=== PATIENT | female | born 1965 | race Caucasian/White ===

== ENCOUNTER 2018-06-08 17:13 | Emergency (ER) | payer OTHER ==
[~2018-06-08] VITALS: Ht 162.6 cm; Wt 82.6 kg
[2018-06-08 17:14] VITALS: Ht 162.6 cm; Wt 82.6 kg
[2018-06-08 18:13] LABS: BASOPHIL % 0.4 % (0-2); PLATELET COUNT 260 x10^3mcL (130-400); RED CELL DISTRIBUTION WIDTH 14.1 % (11.5-14.5)
[2018-06-08 18:23] LABS: CALCIUM 8.6 mg/dL (8.5-10.1); CARBON DIOXIDE 27.3 mmol/L (21-32); CREATININE SERUM 1.1 mg/dL (0.6-1.0); POTASSIUM SERUM 3.6 mmol/L (3.5-5.1)
[2018-06-08 18:28] LABS: ALBUMIN 3.3 g/dL (3.4-5.0); BILIRUBIN TOTAL 0.2 mg/dL (0.20-1.00); TOTAL PROTEIN, SERUM 7.1 g/dL (6.4-8.2)
[2018-06-08] MEDS ORDERED: LISINOPRIL2.5 MG (19:11)
[2018-06-08 22:34] VITALS: BP 139/82
== END 2018-06-08 22:34 | disposition home or self-care (01) ==
LOC: ED 17:13
PROVIDERS: Emergency Medicine
DX: G43.109 Migraine with aura, not intractable, without status migrainosus (principal); I10 Essential (primary) hypertension; Z90.49 Acquired absence of other specified parts of digestive tract; Z90.89 Acquired absence of other organs
CPT/HCPCS: J0780; J1200; J1885; J3010; Q0092; Q9967

== ENCOUNTER 2018-09-21 10:22 | Emergency (ER) | payer OTHER ==
[~2018-09-21] VITALS: Ht 157.5 cm; Wt 82.6 kg
[~2018-09-21 10:22] MED LIST: LISINOPRIL2.5 MG
[2018-09-21 10:25] VITALS: Ht 157.5 cm; Wt 82.6 kg
[2018-09-21 11:47] VITALS: BP 135/74
== END 2018-09-21 11:47 | disposition home or self-care (01) ==
LOC: ED 10:22
DX: M54.42 Lumbago with sciatica, left side (principal); W50.0XXA Accidental hit or strike by another person, initial encounter; Y93.89 Activity, other specified; Y92.89 Other specified places as the place of occurrence of the external cause; Y99.8 Other external cause status
CPT/HCPCS: J1885

== ENCOUNTER 2019-05-26 08:08 | Emergency (ER) | payer OTHER, SELFPAY ==
[~2019-05-26] VITALS: Ht 157.5 cm; Wt 79.4 kg
[2019-05-26 08:09] VITALS: Ht 157.5 cm; Wt 79.4 kg
[2019-05-26 09:05] LABS: BASOPHIL % 0.6 % (0-2); PLATELET COUNT 263 x10^3mcL (130-400); RED CELL DISTRIBUTION WIDTH 14.3 % (11.5-14.5)
[2019-05-26 09:09] LABS: microscopic required? NO
[2019-05-26 09:24] LABS: CALCIUM 9.1 mg/dL (8.5-10.1); CARBON DIOXIDE 30.5 mmol/L (21-32); CHLORIDE SERUM 105 mmol/L (98-107); CREATININE SERUM 0.9 mg/dL (0.6-1.0); GFR1 > 60 mL/min; GLUCOSE SERUM 102 mg/dL (74-106); POTASSIUM SERUM 4.1 mmol/L (3.5-5.1); SODIUM SERUM 141 mmol/L (136-145)
[2019-05-26 09:25] LABS: urine erythrocyte NEGATIVE (NEGATIVE)
[2019-05-26 09:27] LABS: ALKALINE PHOSPHATASE 132 U/L (46-116); ALT/SGPT 32 U/L (14-59); AST/SGOT 14 U/L (15-37); C REACTIVE PROTEIN 2.2 mg/dL (<=0.9); CHOLESTEROL 194 mg/dL (<200); LIPASE 117 IU/L (73-393); TOTAL PROTEIN, SERUM 7.2 g/dL (6.4-8.2); TRIGLYCERIDES 166 mg/dL (<150)
[2019-05-26 09:29] LABS: ALBUMIN 3.3 g/dL (3.4-5.0); CHOLESTEROL/HDL RATIO 6.1; HDL CHOLESTEROL 32 mg/dL (40-60)
[2019-05-26 10:04] LABS: FREE THYROXINE INDEX 2.5 ug/dL (1.4-4.5); T4(THYROXINE) 7.6 ug/dL (4.7-13.3)
[2019-05-26 10:09] LABS: T3 TOTAL 1.55 ng/mL
[2019-05-26 13:57] VITALS: BP 136/86
== END 2019-05-26 13:57 | disposition home or self-care (01) ==
LOC: ED 08:08
PROVIDERS: Specialist
DX: J40 Bronchitis, not specified as acute or chronic (principal); F17.210 Nicotine dependence, cigarettes, uncomplicated; I10 Essential (primary) hypertension; Z90.89 Acquired absence of other organs; Z90.710 Acquired absence of both cervix and uterus
CPT/HCPCS: 83880; 84439; 87804; J1885; J3535; Q0092; U0002